=== PATIENT | male | born 1985 | race African-American/Black ===

== ENCOUNTER 2017-05-16 15:17 | Emergency (ER) | payer SELFPAY ==
[2017-05-16] MEDS ORDERED: Acetaminophen 500 MG TAB ONE (15:37)
== END 2017-05-16 16:15 | disposition home or self-care (01) ==
LOC: NAV ERS 15:17
DX: B34.9 Viral infection, unspecified (principal); I10 Essential (primary) hypertension; J45.909 Unspecified asthma, uncomplicated; F17.210 Nicotine dependence, cigarettes, uncomplicated
CPT/HCPCS: 87804; 99406

== ENCOUNTER 2024-12-10 16:14 | Emergency (ER) | payer SELFPAY | END 2024-12-10 17:08 | disposition home or self-care (01) | LOC: NAV ERS 16:14 | DX: B34.9 Viral infection, unspecified (principal); I10 Essential (primary) hypertension; R73.03 Prediabetes; F17.210 Nicotine dependence, cigarettes, uncomplicated; Z79.84 Long term (current) use of oral hypoglycemic drugs; Z79.899 Other long term (current) drug therapy | CPT/HCPCS: 99283 ==